=== PATIENT | female | born 1950 | race Caucasian/White ===

== ENCOUNTER 2019-07-09 11:17 | Emergency (ER) | payer OTHER ==
--- NOTE | 2019-07-09 11:21 | PDOC ---
History of Present Illness - General Chief Complaint: Pain, Acute Stated Complaint: LEFT ANKLE PAIN Time Seen by Provider: 07/09/19 11:20 Past History - Past Medical History Allergies/Adverse Reactions: Allergies Allergy/AdvReac Type Severity Reaction Status Date / Time Penicillins Allergy Verified 07/09/19 11:18 Sulfa (Sulfonamide Allergy Verified 07/09/19 11:18 Antibiotics) Home Medications: Ambulatory Orders Cetirizine HCl [Zyrtec -] 10 mg PO DAILY 07/09/19 Olmesartan Medoxomil [Benicar] 0 mg PO DAILY 07/09/19 *DC/Admit/Observation/Transfer - Discharge Dispostion Condition at time of disposition: Stable - Referrals - Patient Instructions - Post Discharge Activity
[2019-07-09 11:23] VITALS: BMI 21.6
[2019-07-09] MEDS ORDERED: IBUPROFEN 200 MG TABLET PO ONE (11:28)
[2019-07-09 11:36] VITALS: BP 132/54; PULSE 70; TEMP 98.4
[2019-07-09] MEDS ORDERED: IBUPROFEN 400 MG TABLET (FP) PO ONE (12:19)
--- NOTE | 2019-07-09 12:38 | PDOC ---
History of Present Illness - General Chief Complaint: Pain, Acute Stated Complaint: LEFT ANKLE PAIN Time Seen by Provider: 07/09/19 11:20 History Source: Patient Exam Limitations: No Limitations - History of Present Illness Initial Comments: 07/09/19 12:34 69-year-old female presents for evaluation of left ankle injury. Patient was ambulating home, tripped and internally rotated her left ankle/foot. Light fall to the ground without additional injury, has been ambulating with some localized sharp discomfort on the anterior lateral aspect of her left ankle, no sensory or motor deficit, took ibuprofen 400 mg and presents for evaluation. Denies any other complaints, no lightheadedness. No history of recurring injuries to this area. Past History - Past Medical History Allergies/Adverse Reactions: Allergies Allergy/AdvReac Type Severity Reaction Status Date / Time Penicillins Allergy Verified 07/09/19 11:18 Sulfa (Sulfonamide Allergy Verified 07/09/19 11:18 Antibiotics) Home Medications: Ambulatory Orders Cetirizine HCl [Zyrtec -] 10 mg PO DAILY 07/09/19 Olmesartan Medoxomil [Benicar] 0 mg PO DAILY 07/09/19 COPD: No CHF: No DVT: No HTN: Yes - Suicide/Smoking/Psychosocial Hx Smoking History: Never smoked Hx Alcohol Use: No Drug/Substance Use Hx: No Review of Systems - Review of Systems Cardiac (ROS): No: Lightheadedness, Syncope Musculoskeletal: Yes: See HPI Neurological: No: Paresthesia, Weakness *Physical Exam - Vital Signs Last Vital Signs Temp Pulse Resp BP Pulse Ox 98.4 F 70 17 132/54 L 100 07/09/19 11:18 07/09/19 11:18 07/09/19 11:18 07/09/19 11:18 07/09/19 11:18 - Physical Exam Comments: 07/09/19 12:35 GENERAL: Vital signs normal HEAD: Normal with no signs of trauma. EYES: Pupils equal, round and reactive to light, extraocular movements intact, sclera anicteric, conjunctiva clear. EXTREMITIES: Trauma exam is unremarkable except for left lower extremity: Left knee without swelling or focal bony tenderness, full range of motion with full strength. There is soft tissue swelling over the anterior lateral aspect of the left ankle/proximal foot, no focal bony tenderness over the malleoli or in the foot, no joint effusion, full range of motion with full plantar/dorsiflexion, 2 + distal pulses, intact sensation. NEUROLOGICAL: Normal speech, slightly antalgic gait secondary to left ankle pain. PSYCH: Normal mood, normal affect. SKIN: Warm, Dry, normal turgor, no rashes or lesions noted. ED Treatment Course - RADIOLOGY Radiology Studies Ordered: Category Date Time Status ANKLE & FOOT-LEFT* [RAD] Stat Radiology 07/09/19 11:28 Taken - Medications Given in the ED: ED Medications Discontinued Medications Generic Name Dose Route Start Last Admin Trade Name Padmini PRN Reason Stop Dose Admin Ibuprofen 200 mg 07/09/19 11:28 07/09/19 12:23 Advil - PO 07/09/19 11:29 200 mg ONCE ONE Administration Medical Decision Making - Medical Decision Making 07/09/19 12:37 69-year-old female with inversion injury of left ankle after tripping and near fall, likely sprain, rule out fracture. Neurovascularly intact. Given additional 200 mg of ibuprofen Left ankle/foot x-ray: On my preliminary review, there is no acute fracture or dislocation. Disposition accordingly *DC/Admit/Observation/Transfer Diagnosis at time of Disposition: Left ankle sprain Qualifiers: Encounter type: initial encounter Involved ligament of ankle: unspecified ligament Qualified Code(s): S93.402A - Sprain of unspecified ligament of left ankle, initial encounter - Discharge Dispostion Disposition: HOME Condition at time of disposition: Stable - Referrals Referrals: Satnam Li MD [Staff Physician] - - Patient Instructions Printed Discharge Instructions: DI for Ankle Sprain Additional Instructions: Activity and weight-bearing as tolerated. Use aircast as instructed for additional support while walking. Stay hydrated. Tylenol 1000 mg every 8 hours and/or ibuprofen 600 mg every 8 hours as needed for pain. Ice and elevate the affected areas for 20 minutes every 3-4 hours to reduce swelling. Continue your medications as previously prescribed by your physician. You should follow up with an orthopedic as needed regarding today's emergency department visit. Return to the emergency department for any new or concerning symptoms, particularly persistent or worsening pain or swelling, severe discoloration, numbness. - Post Discharge Activity
== END 2019-07-09 12:51 | disposition home or self-care (01) ==
LOC: FER 11:17
DX: S93.402A Sprain of unspecified ligament of left ankle, initial encounter (principal); W18.39XA Other fall on same level, initial encounter; Y93.89 Activity, other specified; Y92.89 Other specified places as the place of occurrence of the external cause; I10 Essential (primary) hypertension
CPT/HCPCS: 73610-TC-LT-FY; 73630-TC-LT; 99282-25